=== PATIENT | male | born 2000 | race Caucasian/White ===

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

== ENCOUNTER 2022-03-06 12:54 | Emergency (ER) | payer BC, SELFPAY ==
[2022-03-06 13:19] LABS: UTC Strep Screen (Rapid) Negative (Negative)
--- NOTE | 2022-03-06 13:28 | EXP.UTC ---
Discharge Plan Disposition Patient Disposition: Home, Self-Care Condition: Good Prescriptions Prescriptions: No Action levetiracetam 500 mg tablet 750 mg PO BID 30 Days Qty: 60 mesalamine 250 mg capsule, extended release 250 mg PO TID quetiapine 25 MG tablet 25 mg PO HS ondansetron 4 MG tablet,disintegrating 4 mg PO TIDP PRN (Reason: Nausea And Vomiting) Qty: 15 0RF Referrals Follow up/Referrals: Randell Bennett MD [Primary Care Provider] - See instructions Activity Restrictions/Add. Instructions Additional Instructions/Restrictions: *Monitor Temp, Over the counter Motrin or Tylenol as directed/as needed Tylenol every 4 hours and Motrin every 6 hours (as long as your family doctor has told you that you can take it) for fever or pain. and straight to ER if unable to lower temp less than 101.0 after medication given *Warm salt water gargles may help to soothe the throat *Throat Lozenges? *Warm fluids like tea with honey may help to soothe the throat? *Sleep elevated *Humidifier/Vaporizer Your throat swab was sent for culture. Those results are typically sent to your primary care. Be sure to follow up in 2-3 days with your family doctor/primary care physician if no improvement so they can review those result and treat if necessary. If you don?t have a primary care doctor, I recommend you get one but in the mean time, you will have to return to a walk in clinic Follow up IMMEDIATELY for new or worsening symptoms or no Noticeable improvement over the next 48-72 hours. 911 for difficulty breathing or swallowing You were tested for today for COVID19 your test result should be back in the next 24-48 hours, you may check your result on the [facility] My Health Portal Make sure to take your Vitamins Vit. C Vit D and Zinc if you can take them Clinical Impressions Clinical Impression: Viral syndrome Stand Alone Forms Stand Alone Forms: Work/School Release Instructions Patient Instructions: Sore Throat, DI for Nasal Congestion, DI for Viral Syndrome Discharge ED Provider: Stacy Brito [facility] [place] HPI General Stated complaint: congestion, ear pain, body aches Time Seen by Provider: 03/06/22 13:28 History of Present Illness Provider Complaint: Patient states that he hasnt felt well for a couple of days States that he has been having body aches, chills, pain in both ears and nasal congestion States that he has take several over the counter medications and they havent helped much States that he started feeling bad last week and has continued to feel worse Related Data Home Medications Medication Instructions Recorded Confirmed levetiracetam 500 mg tablet 750 mg PO BID SEIZURES 30 days #60 04/28/18 10/02/21 tabs mesalamine 250 mg capsule,extended 250 mg PO TID CROHNS 08/16/19 10/02/21 release quetiapine 25 mg tablet 25 mg PO HS Sleeping 10/02/21 10/02/21 Previous Rx's Medication Instructions Recorded ondansetron 4 mg disintegrating 4 mg PO TIDP PRN Nausea And 10/02/21 tablet Vomiting #15 tabs Allergies Allergy/AdvReac Type Severity Reaction Status Date / Time Penicillins [PENICILLINS] Allergy Intermediate S-SWELLS-OR Verified 03/06/22 13:34 AL/THROAT PFSH PFSH Social History Smoking Status: Current every day smoker tobacco type: e-cigarettes alcohol intake: never current occupational status: other Travel in the last 8 weeks: None household members: family housing: house ROS Obtained: Yes All systems reviewed & no additional complaints except as documented and Yes Systems reviewed as appropriate & no additional complaints except as documented Constitutional Constitutional: Reports system reviewed and no additional complaints, except as documented, Reports as per HPI, Reports body ache, Reports chills and Reports fatigue ENT Ears, Nose, Mouth, and Throat: Reports system reviewed and no additional complaints, except as documented, Repor
[2022-03-06 13:30] VITALS: BP 112/67; PULSE 72; RESP 18; TEMP 37; O2SAT 100; BMI 18.3
[2022-03-06 13:41] VITALS: BP 112/67; PULSE 72; RESP 18; TEMP 37
[2022-03-06 13:43] LABS: Adenovirus,PCR Not Detected (NotDetected); Bordetella Pertussis Not Detected (NotDetected); Chlamydophila Pneumoniae, PCR Not Detected (NotDetected); Coronavirus 19, PCR Not Detected (NotDetected); Coronavirus 229E Not Detected (NotDetected); Coronavirus NL63 Not Detected (NotDetected); Coronavirus OC43 Not Detected (NotDetected); Coronovirus HKU1,PCR Not Detected (NotDetected); Human Metapneumovirus Not Detected (NotDetected); Influenza A, PCR Not Detected (NotDetected); Influenza AH1, 2009 Not Detected (NotDetected); Influenza AH1, PCR Not Detected (NotDetected); Influenza AH3,PCR Not Detected (NotDetected); Influenza B, PCR Not Detected (NotDetected); Mycoplasma Pneumoniae, PCR Not Detected (NotDetected); Parainfluenza 1, PCR Not Detected (NotDetected); Parainfluenza 2, PCR Not Detected (NotDetected); Parainfluenza 3, PCR Not Detected (NotDetected); Parainfluenza 4, PCR Not Detected (NotDetected); Respiratory Syncytial Virus Not Detected (NotDetected)
[2022-03-06 21:16] LABS: Rhinovirus/Enterovirus Detected (NotDetected)
== END 2022-03-06 13:45 | disposition home or self-care (01) ==
PROVIDERS: Emergency Provider Nurse Practitioner; PCP Family Medicine
DX: B34.9 Viral infection, unspecified (principal); R09.81 Nasal congestion; M79.10 Myalgia, unspecified site; H92.03 Otalgia, bilateral; Z20.822 Contact with and (suspected) exposure to COVID-19
CPT/HCPCS: 87581; 87632; 87798; 87880; 99212; C9803; G0463; U0003; U0005

== ENCOUNTER 2023-05-01 14:23 | Emergency (ER) | payer BC, SELFPAY ==
[2023-05-01 14:40] VITALS: BP 116/61; PULSE 87; RESP 18; TEMP 36.8; O2SAT 98; BMI 19.7
--- NOTE | 2023-05-01 14:41 | EXP.UTC ---
Discharge Plan Disposition Patient Disposition: Home, Self-Care Condition: Good Prescriptions Prescriptions: New azithromycin [Zithromax] 250 mg tablet 250 mg PO UD DOSE PK Qty: 6 0RF Rx Instructions: Take two (2) tablets today, then one (1) tablet days #2 thru #5 methylprednisolone 4 mg Tablets,Dose Pack 4 mg PO DIRECTED Qty: 21 0RF [id number]-[id number] [Bromfed DM] 2-30-10 mg/5 mL Syrup 5 ml PO Q6H PRN (Reason: Cough) Qty: 240 0RF No Action levetiracetam 500 mg tablet 750 mg PO BID 30 Days Qty: 60 mesalamine 250 mg capsule, extended release 250 mg PO TID omeprazole 20 mg capsule,delayed release(DR/EC) 20 mg PO DAILY Referrals Follow up/Referrals: Randell Bennett MD [Primary Care Provider] - See instructions Activity Restrictions/Add. Instructions Additional Instructions/Restrictions: Drink plenty of fluids. Take tylenol or ibuprofen for pain or fever. Take the medications as directed. Follow up with your regular doctor. GO TO THE ER FOR ANY WORSENING SYMPTOMS Clinical Impressions Clinical Impression: Sinusitis, Pharyngitis Stand Alone Forms Stand Alone Forms: Work/School Release Discharge ED Provider: Bolivar Bowman [facility] [place] HPI General Stated complaint: cough,runny nose,ear pain,watery eyes Time Seen by Provider: 05/01/23 14:42 Related Data Home Medications Medication Instructions Recorded Confirmed levetiracetam 500 mg tablet 750 mg PO BID SEIZURES 30 days #60 04/28/18 05/01/23 tabs mesalamine 250 mg capsule,extended 250 mg PO TID CROHNS 08/16/19 05/01/23 release omeprazole 20 mg capsule,delayed 20 mg PO DAILY 05/01/23 05/01/23 release Previous Rx's Medication Instructions Recorded azithromycin 250 mg tablet 250 mg PO UD DOSE PK #6 tabs 05/01/23 (Zithromax) hnngqmkcsgfixgf-yjkxtzdxleuphgf-QL 5 ml PO Q6H PRN Cough #240 mL 05/01/23 2 mg-30 mg-10 mg/5 mL oral syrup (Bromfed DM) methylprednisolone 4 mg tablets in 4 mg PO DIRECTED #21 tabs 05/01/23 a dose pack Allergies Allergy/AdvReac Type Severity Reaction Status Date / Time Penicillins [PENICILLINS] Allergy Intermediate S-SWELLS-OR Verified 05/01/23 15:01 [facility] Disclaimer: The information contained in this section may have been updated after the patient was seen, as this information can be updated by other users. Social History Smoking Status: Current every day smoker tobacco type: e-cigarettes alcohol intake: never current occupational status: other Travel in the last 8 weeks: None household members: family housing: house ROS Obtained: Yes All systems reviewed & no additional complaints except as documented Constitutional Constitutional: Reports chills and Reports fever(s) Eyes Eyes: Denies eye discharge ENT Ears, Nose, Mouth, and Throat: Reports as per HPI Cardiovascular Cardiovascular: Denies chest pain Respiratory Respiratory: Denies chest congestion and Reports cough Gastrointestinal Gastrointestingal: Reports nausea; Denies abdominal pain, constipation, cramping, diarrhea or vomiting Musculoskeletal Musculoskeletal: Denies arthralgias Integumentary/Breasts Skin/Breast: Denies rash Neurologic Neurologic: Denies paresthesias Physical Exam General General appearance: alert and in no apparent distress Eye Eye exam: Present normal appearance, PERRL and EOMI ENT ENT exam: Present mucous membranes moist and normal external ear exam Expanded ENT Exam External ear exam: Present normal external inspection TM/Canal exam: Bilateral TM: erythema and bulging Nose exam: Absent sinus tenderness Nasal speculum exam: Bilateral: normal Mouth exam: Present normal external inspection; Absent drooling Teeth exam: Present normal inspection Throat exam: Present tonsillar erythema and tonsillomegaly Neck Neck exam: Present normal inspection, full ROM and trachea
[2023-05-01 14:57] LABS: UTC Strep Screen (Rapid) Negative (Negative)
[2023-05-01 15:00] VITALS: BP 116/61; PULSE 87; RESP 18; TEMP 36.8; O2SAT 98
== END 2023-05-01 15:34 | disposition home or self-care (01) ==
PROVIDERS: Emergency Provider Nurse Practitioner Family; PCP Family Medicine
DX: J01.90 Acute sinusitis, unspecified (principal); J02.9 Acute pharyngitis, unspecified; R05.9 Cough, unspecified; R09.81 Nasal congestion; H92.03 Otalgia, bilateral; F17.290 Nicotine dependence, other tobacco product, uncomplicated
CPT/HCPCS: 87880; 99212; 99214; G0463

== ENCOUNTER 2023-05-15 07:39 | Emergency (ER) | payer BC, SELFPAY ==
[2023-05-15 07:40] VITALS: BP 136/80; PULSE 95; RESP 16; TEMP 37; O2SAT 100; BMI 18.6
--- NOTE | 2023-05-15 07:42 | HMH.EDGENADL ---
Discharge Plan Disposition Patient Disposition: Home, Self-Care Condition: Good Prescriptions Prescriptions: New methocarbamol 750 mg tablet 750 mg PO Q8H Qty: 90 0RF No Action levetiracetam 500 mg tablet 750 mg PO BID 30 Days Qty: 60 mesalamine 250 mg capsule, extended release 250 mg PO TID omeprazole 20 mg capsule,delayed release(DR/EC) 20 mg PO DAILY azithromycin [Zithromax] 250 mg tablet 250 mg PO UD DOSE PK Qty: 6 0RF Rx Instructions: Take two (2) tablets today, then one (1) tablet days #2 thru #5 methylprednisolone 4 mg Tablets,Dose Pack 4 mg PO DIRECTED Qty: 21 0RF erwsihkvrzkbhaq-igemilymt-ZX [Bromfed DM] 2-30-10 mg/5 mL Syrup 5 ml PO Q6H PRN (Reason: Cough) Qty: 240 0RF Referrals Follow up/Referrals: Randell Bennett MD [Primary Care Provider] - See instructions Activity Restrictions/Add. Instructions Additional Instructions/Restrictions: Please continue to take Tylenol as needed. I have also prescribed an additional medication which is a muscle relaxer. Please be careful with how you move your body at work as well as how you are sitting and standing as this may be contributing. Please return to the emergency department if you experience any new or worsening symptoms. Clinical Impressions Clinical Impression: Acute thoracic back pain Qualifiers: Back pain laterality: midline Qualified Code(s): M54.6 - Pain in thoracic spine Stand Alone Forms Stand Alone Forms: Work/School Release Instructions Patient Instructions: DI for Low Back Pain Discharge ED Provider: Lv Stoll Adult HPI General Chief complaint: Back Pain/Injury Stated complaint: back pain, no accident Time Seen by Provider: 05/15/23 07:42 History of Present Illness HPI narrative: The patient presents with a chief complaint of severe lower back pain that started last night. He reports a history of mild, intermittent lower back pain throughout his life, but the current episode is significantly more intense. The pain is described as sharp and located on both sides of the spine. There is no specific injury or event reported that may have triggered the pain. He experienced difficulty getting dressed this morning due to the pain and reports weakness in his legs when the sharp pain occurs. He denies any numbness or tingling. 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 No specific activities or positions have been identified that exacerbate or alleviate the pain. The patient has a past medical history of Crohn's disease and is currently taking mesalamine for management. He was previously prescribed ibuprofen for his back pain, but it was contraindicated due to his Crohn's disease. The patient also reports a recent sinus infection that has resolved. There is no reported fever, chills, or other associated symptoms. The patient has not had any imaging of his back in the past. Related Data Home Medications Medication Instructions Recorded Confirmed levetiracetam 500 mg tablet 750 mg PO BID SEIZURES 30 days #60 04/28/18 05/01/23 tabs mesalamine 250 mg capsule,extended 250 mg PO TID CROHNS 08/16/19 05/01/23 release omeprazole 20 mg capsule,delayed 20 mg PO DAILY 05/01/23 05/01/23 release Previous Rx's Medication Instructions Recorded azithromycin 250 mg tablet 250 mg PO UD DOSE PK #6 tabs 05/01/23 (Zithromax) qytxedtsdlikayi-nbzzcaoafmfhnkq-FQ 5 ml PO Q6H PRN Cough #240 mL 05/01/23 2 mg-30 mg-10 mg/5 mL oral syrup (Bromfed DM) methylprednisolone 4 mg tablets in 4 mg PO DIRECTED #21 tabs 05/01/23 a dose pack methocarbamol 750 mg tablet 750 mg PO Q8H #90 tabs 05/15/23 Allergies Allergy/AdvReac Type Severity Reaction Status Date / Time Penicillins [PENICILLINS] Allergy Intermediate S-SWELLS-OR Verified 05/01/23 15:01 [facility] Disclaimer: The information cont
--- NOTE | 2023-05-15 08:01 | PC.NURSE ---
dr regan at bedside
[2023-05-15 08:30] VITALS: BP 120/83; PULSE 85; O2SAT 100
[2023-05-15 09:00] VITALS: BP 111/71; PULSE 90; O2SAT 99
[2023-05-15 09:13] VITALS: BP 111/71; PULSE 88; RESP 18; TEMP 36.7; O2SAT 99
== END 2023-05-15 09:14 | disposition home or self-care (01) ==
PROVIDERS: Emergency Provider Emergency Medicine; PCP Family Medicine
DX: M54.6 Pain in thoracic spine (principal); M54.50 Low back pain, unspecified; K50.919 Crohn's disease, unspecified, with unspecified complications; F17.290 Nicotine dependence, other tobacco product, uncomplicated
CPT/HCPCS: 99283

== ENCOUNTER 2023-10-15 16:38 | Emergency (ER) | payer BC, SELFPAY ==
--- NOTE | 2023-10-15 16:53 | XR_ITS ---
PROCEDURE INFORMATION: Exam: XR Right Knee Exam date and time: 10/15/2023 4:49 PM Age: 23 years old Clinical indication: Pain; Knee; Right TECHNIQUE: Imaging protocol: Radiologic exam of the right knee. Views: 3 views. COMPARISON: No relevant prior studies available. FINDINGS: Bones/joints: Normal alignment. No right knee effusion. No fracture. Soft tissues: Normal. IMPRESSION: Normal study
[2023-10-15 17:15] VITALS: BP 109/79; PULSE 81; RESP 18; TEMP 36.8; O2SAT 98
--- NOTE | 2023-10-15 17:21 | ED_ITS ---
Discharge Plan Disposition Patient Disposition: Home, Self-Care Condition: Good Prescriptions Prescriptions: New clindamycin HCl 300 mg capsule 300 mg PO Q8H Qty: 30 0RF mupirocin 2 % ointment 1 applic topical TID 7 Days Qty: 15 0RF ibuprofen [IBU] 800 mg tablet 800 mg PO Q8HP PRN (Reason: Moderate Pain) Qty: 30 0RF No Action levetiracetam 500 mg tablet 750 mg PO BID 30 Days Qty: 60 mesalamine 250 mg capsule, extended release 250 mg PO TID Referrals Follow up/Referrals: Randell Bennett MD [Primary Care Provider] - See instructions Activity Restrictions/Add. Instructions Additional Instructions/Restrictions: Keep the wound clean and dry. Watch the wound for signs of infection, such as redness, swelling, drainage, fever. etc. Take tylenol or ibuprofen for pain. I sent in a prescription for ibuprofen. Follow up with your regular doctor for a recheck of the wound in 48 to 72 hours. GO TO THE ER FOR ANY WORSENING SYMPTOMS OR CONCERNS. 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 He has had right knee pain and swelling at the site since then. He denies other injury. His tetanus immunization is not up to date. Related Data Home Medications Medication Instructions Recorded Confirmed levetiracetam 500 mg tablet 750 mg PO BID SEIZURES 30 days #60 04/28/18 10/15/23 tabs mesalamine 250 mg capsule,extended 250 mg PO TID CROHNS 08/16/19 10/15/23 release Previous Rx's Medication Instructions Recorded clindamycin HCl 300 mg capsule 300 mg PO Q8H #30 caps 10/15/23 ibuprofen 800 mg tablet (IBU) 800 mg PO Q8HP PRN Moderate Pain 10/15/23 #30 tabs mupirocin 2 % topical ointment 1 applic topical TID 7 days #15 10/15/23 grams Allergies Allergy/AdvReac Type Severity Reaction Status Date / Time Penicillins [PENICILLINS] Allergy Intermediate S-SWELLS-OR Verified 10/15/23 17:31 AL/THROAT PFSH [facility] Disclaimer: The information contained in this section may have been updated after the patient was seen, as this information can be updated by other users. Social History Smoking Status: Current every day smoker tobacco type: e-cigarettes alcohol intake: never current occupational status: other Travel in the last 8 weeks: None household members: family housing: house ROS Obtained: Yes All systems reviewed & no additional complaints except as documented Constitutional Constitutional: Denies chills and Denies fever(s) Eyes Eyes: Denies eye discharge ENT Ears, Nose, Mouth, and Throat: Denies dizziness, Denies otalgia and Denies sore throat Cardiovascular Cardiovascular: Denies chest pain Respiratory Respiratory: Denies shortness of breath, Denies chest congestion, Denies cough, Denies stridor and Denies wheezing Gastrointestinal Gastrointestingal: Denies nausea or vomiting Musculoskeletal Musculoskeletal: Reports as per HPI Integumentary/Breasts Skin/Breast: Reports as per HPI and Reports wounds Neurologic Neurologic: Denies dizziness and Denies paresthesias Allergic/Immunologic Allergic/Immunologic: Denies wheezing Physical Exam General General appearance: alert and in no apparent distress Head Head exam: atraumatic, normocephalic and normal inspection Eye Eye exam: Present normal appearance, PERRL and EOMI ENT ENT exam: Present normal exam, normal oropharynx, mucous membranes moist, TM's normal bilaterally and normal external ear exam Neck Neck exam: Present normal inspection, full ROM and trachea midline; Absent meningismus or lymphadenopathy Chest Chest inspection: Present normal inspection and symmetric chest wall rise; Absent tenderness Respiratory Respiratory exam: Present normal lung sounds bilaterally; Absent respiratory distress Cardiovascular Cardiovascular exam: Present regular rate and normal rhythm; Absent JVD Abdominal Exam Abdominal exam: Present soft and normal bowel sounds; Absent distention, tenderness or guarding Extremities Exam Extremities exam: Present normal capillary refill; Absent calf tenderness Expanded Lower Extremity Exam Left: Knee exam: Present full ROM, tenderness and knee extension intact; Absent swelling, abrasion, laceration, ecchymosis, deformity, crepitus, dislocation, erythema, effusion, anterior drawer sign, posterior draw sign, pain with valgus, laxity with valgus, pain with varus or laxity with varus Neurovascular/Tendon exam: Present normal capillary refill Gait: observed and normal Back Exam Back exam: Present normal inspection; Absent tenderness Neurological Exam Neurological exam: Present alert and oriented X3 Psychiatric Psychiatric exam: Present normal affect and normal mood Skin Skin exam: Present warm, dry, intact and normal color Lymphatic Lymphatic Findings: no adenopathy Medical Decision Making Medical Records Medical records reviewed: No I reviewed the patient's medical records. Ede Inquiry Pt receiving controlled substance: No Orders (Tests/Meds): ORDERS Category Date Time Status Knee XR right 3 views [XR knee RT 3V] Stat Exams 10/15/23 16:53 Completed Radiology Data #1: Image(s): Knee Image Reviewed: Yes I reviewed the patient's radiology image and Yes I have reviewed radiologist's interpretation Preliminary Findings: Normal/NAD Accession No. 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 Views: 3 views. COMPARISON: No relevant prior studies available. FINDINGS: Bones/joints: Normal alignment. No right knee effusion. No fracture. Soft tissues: Normal. IMPRESSION: Normal study
[2023-10-15] MEDS: TET/DIPHTH/PERT-ADULT 0.5ML SYRINGE 0.5 ML IM (17:46)
[2023-10-15 18:29] VITALS: BP 109/79; PULSE 81; RESP 18; TEMP 36.8; O2SAT 98
== END 2023-10-15 18:29 | disposition home or self-care (01) ==
PROVIDERS: Emergency Provider Nurse Practitioner Family; PCP Family Medicine
DX: S81.031A Puncture wound without foreign body, right knee, initial encounter (principal); Z23 Encounter for immunization; W45.8XXA Other foreign body or object entering through skin, initial encounter
CPT/HCPCS: 73562; 90471; 90715; 99212; 99214; G0463

== ENCOUNTER 2023-12-13 10:34 | Emergency (ER) | payer BC, SELFPAY ==
[2023-12-13 10:45] VITALS: BP 112/69; PULSE 76; RESP 18; TEMP 36.8; O2SAT 100; BMI 19.1
--- NOTE | 2023-12-13 11:27 | ED_ITS ---
Discharge Plan Disposition Patient Disposition: Home, Self-Care Condition: Good Prescriptions Prescriptions: New fluticasone propionate [Flonase Allergy Relief] 50 mcg/actuation spray,suspension 1 spray intranasal DAILY Qty: 16 0RF Rx Instructions: administer into each nostril twice a day for a week and then once daily ondansetron 4 mg tablet,disintegrating 4 mg PO Q8H PRN (Reason: nausea and vomiting) Qty: 10 0RF No Action levetiracetam 500 mg tablet 750 mg PO BID 30 Days Qty: 60 mesalamine 250 mg capsule, extended release 250 mg PO TID Referrals Follow up/Referrals: Randell Bennett MD [Primary Care Provider] - See instructions Activity Restrictions/Add. Instructions Additional Instructions/Restrictions: Take medication as prescribed. Do not take anti-diarrheal. Increase fluids and rest. Bananas, rice, applesauce, toast when you start back eating. If symptoms do not improve or worsen, return to clinic or go to PCP. Clinical Impressions Clinical Impression: Gastroenteritis Dysfunction of eustachian tube Qualifiers: Laterality: bilateral Qualified Code(s): H69.93 - Unspecified Eustachian tube disorder, bilateral Stand Alone Forms Stand Alone Forms: Work/School Release Instructions Patient Instructions: DI for Viral Gastroenteritis -- Adult, DI for Eustachian Tube Dysfunction-Adult Discharge ED Provider: Aysha Mcintosh [facility] General Stated complaint: vomiting Mode of Arrival: Ambulatory Source of Information: Patient Limitations: No Limitations Time Seen by Provider: 12/13/23 11:27 Description of Symptoms (Recalled from Triage Doc. by RN): PATIENT C/O NAUSEA, VOMITING, DIARRHEA, HEADACHE, RIGHT EAR PAIN, AND FEVER SINCE YESTERDAY HEENT Symptoms (Recalled from RN notes): Yes Resp Symptoms (Recalled from RN notes): No Skin Symptoms (Recalled from RN notes): No MS Symptoms (Recalled from RN notes): No Functional Status (Recalled from RN notes): WNL History of Present Illness Provider Complaint: Pt reports that when he got home from work yesterday he started feeling sick to his stomach and then later started vomiting. He reports that he has not vomited today but has still felt nauseated and had diarrhea. He reports that he has had some right side ear pain since last night. Related Data Home Medications Medication Instructions Recorded Confirmed levetiracetam 500 mg tablet 750 mg PO BID SEIZURES 30 days #60 04/28/18 12/13/23 tabs mesalamine 250 mg capsule,extended 250 mg PO TID CROHNS 08/16/19 12/13/23 release Previous Rx's Medication Instructions Recorded fluticasone propionate 50 1 spray intranasal DAILY #16 grams 12/13/23 mcg/actuation nasal spray,suspension (Flonase Allergy Relief) ondansetron 4 mg disintegrating 4 mg PO Q8H PRN nausea and 12/13/23 tablet vomiting #10 tabs Allergies Allergy/AdvReac Type Severity Reaction Status Date / Time Penicillins [PENICILLINS] Allergy Intermediate S-SWELLS-OR Verified 10/15/23 17:31 AL/THROAT Worker's Comp Is this a Worker's Comp case?: No [facility] Disclaimer: The information contained in this section may have been updated after the patient was seen, as this information can be updated by other users. 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 (Updated 12/13/23 @ 11:40 by Aysha Mcintosh APRN) Seizures Social History Smoking Status: Current every day smoker tobacco type: e-cigarettes alcohol intake: never current occupational status: other Travel in the last 8 weeks: None household members: family housing: house ROS Obtained: Yes All systems reviewed & no additional complaints except as documented Constitutional Constitutional: Reports system reviewed and no additional complaints, except as documented and Reports malaise Eyes Eyes: Reports system reviewed and no additional complaints, except as documented ENT Ears, Nose, Mouth, and Throat: Reports system reviewed and no additional complaints, except as documented, Reports otalgia and Reports nasal discharge Cardiovascular Cardiovascular: Reports system reviewed and no additional complaints, except as documented Respiratory Respiratory: Reports system reviewed and no additional complaints, except as documented Gastrointestinal Gastrointestingal: Reports system reviewed and no additional complaints, except as documented, diarrhea, nausea and vomiting Genitourinary Male Genitourinary: Reports system reviewed and no additional complaints, except as documented Musculoskeletal Musculoskeletal: Reports system reviewed and no additional complaints, except as documented Integumentary/Breasts Skin/Breast: Reports system reviewed and no additional complaints, except as documented Neurologic Neurologic: Reports system reviewed and no additional complaints, except as documented Endocrine Endocrine: Reports system reviewed and no additional complaints, except as documented Hematologic/Lymphatic Henatologic/Lymphatic: Reports system reviewed and no additional complaints, except as documented Allergic/Immunologic Allergic/Immunologic: Reports system reviewed and no additional complaints, except as documented Physical Exam General General appearance: alert and in no apparent distress Head Head exam: atraumatic and normocephalic Eye Eye exam: Present normal appearance ENT ENT exam: Present mucous membranes moist Expanded ENT Exam External ear exam: Present normal external inspection TM/Canal exam: Bilateral TM: bulging and effusion Nose exam: Absent sinus tenderness Nasal speculum exam: Bilateral: normal Mouth exam: Present normal external inspection Teeth exam: Present normal inspection Throat exam: Present normal inspection Neck Neck exam: Present normal inspection; Absent lymphadenopathy Chest Chest inspection: Present normal inspection and symmetric chest wall rise Respiratory Respiratory exam: Present normal lung sounds bilaterally Cardiovascular Cardiovascular exam: Present regular rate, normal rhythm and normal heart sounds Abdominal Exam Abdominal exam: Present soft, tenderness and hyperactive bowel sounds Abdominal tenderness: Present epigastrium Extremities Exam Extremities exam: Present normal inspection Back Exam Back exam: Present normal inspection Neurological Exam Neurological exam: Present alert and oriented X3 Psychiatric Psychiatric exam: Present normal affect and normal mood Skin Skin exam: Present warm and dry Lymphatic Lymphatic Findings: no adenopathy Medical Decision Making Ede Inquiry Pt receiving controlled substance: No Ede was queried for this patient: No Vital Signs: 12/13/23 10:45 Temperature 98.2 F Temperature Source Oral Pulse Rate [Left Brachial] 76 Respiratory Rate 18 Blood Pressure [Left Arm] 112/69 Blood Pressure Mean [Left Arm] 83 Blood Pressure Source [Left Arm] Automatic Cuff Blood Pressure Position [Left Arm] Sitting 02 Sat by Pulse Oximetry 100 Oxygen Delivery Method Room Air
[2023-12-13 11:48] VITALS: BP 112/69; PULSE 76; RESP 18; TEMP 36.8; O2SAT 100
== END 2023-12-13 11:57 | disposition home or self-care (01) ==
PROVIDERS: Emergency Provider Nurse Practitioner Family; PCP Family Medicine
DX: K52.9 Noninfective gastroenteritis and colitis, unspecified (principal); R11.2 Nausea with vomiting, unspecified; H69.93 Unspecified Eustachian tube disorder, bilateral
CPT/HCPCS: 99212; 99214; G0463

== ENCOUNTER 2023-12-21 15:30 | Emergency (ER) | payer BC, SELFPAY ==
[2023-12-21 15:35] VITALS: BP 139/88; PULSE 96; RESP 18; TEMP 36.8; O2SAT 97; BMI 18.9
--- NOTE | 2023-12-21 15:41 | XR_ITS ---
FINAL REPORT CLINICAL HISTORY: Pain in heel bruising on medial and lateral sides FINDINGS: LEFT FOOT Three views of the left foot demonstrate no acute fracture or dislocation. The visualized joint spaces are normally aligned. The soft tissues are unremarkable. IMPRESSION: No acute bony abnormality. Reviewed, Interpreted and Dictated by River Rasheed III, MD Transcribed by Gogo Zuleta Authenticated and [facility]
--- NOTE | 2023-12-21 16:03 | ED_ITS ---
Discharge Plan Disposition Patient Disposition: Home, Self-Care Condition: Good Prescriptions Prescriptions: New ibuprofen [IBU] 800 mg tablet 800 mg PO Q8HP PRN (Reason: Moderate Pain) Qty: 30 0RF No Action levetiracetam 500 mg tablet 750 mg PO BID 30 Days Qty: 60 mesalamine 250 mg capsule, extended release 250 mg PO TID Referrals Follow up/Referrals: Randell Bennett MD [Primary Care Provider] - See instructions Mariella Krause DPM [Staff Physician] - See instructions Activity Restrictions/Add. Instructions Additional Instructions/Restrictions: Rest the extremity, Elevate the extremity as tolerated while you are resting. Take ibuprofen for pain. I sent in a prescription to your pharmacy. Follow up with Dr. Krause (podiatry). I put in a referral but you need to call her office and schedule an appointment. Follow up with your regular doctor. GO TO THE ER FOR ANY WORSENING SYMPTOMS Clinical Impressions Clinical Impression: Left foot pain Stand Alone Forms Stand Alone Forms: Work/School Release Instructions Patient Instructions: DI for Foot Pain Discharge ED Provider: Bolivar Bowman [facility] General Stated complaint: left foot pain, no known accident Mode of Arrival: Ambulatory Source of Information: Patient Limitations: No Limitations Time Seen by Provider: 12/21/23 16:02 Description of Symptoms (Recalled from Triage Doc. by RN): Pt's has pain in his left heel for the last 3 weeks. He cannot think of anything specific that would have caused it. HEENT Symptoms (Recalled from RN notes): No Resp Symptoms (Recalled from RN notes): No Skin Symptoms (Recalled from RN notes): No MS Symptoms (Recalled from RN notes): Yes Functional Status (Recalled from RN notes): n/a History of Present Illness Provider Complaint: He states that for the past 3 weeks he has had left heel pain. He denies any injury. Related Data Home Medications Medication Instructions Recorded Confirmed levetiracetam 500 mg tablet 750 mg PO BID SEIZURES 30 days #60 04/28/18 12/21/23 tabs mesalamine 250 mg capsule,extended 250 mg PO TID CROHNS 08/16/19 12/21/23 release Previous Rx's Medication Instructions Recorded ibuprofen 800 mg tablet (IBU) 800 mg PO Q8HP PRN Moderate Pain 12/21/23 #30 tabs Allergies Allergy/AdvReac Type Severity Reaction Status Date / Time Penicillins [PENICILLINS] Allergy Intermediate S-SWELLS-OR Verified 12/21/23 15:43 AL/THROAT Worker's Comp Is this a Worker's Comp case?: No [facility] Disclaimer: The information contained in this section may have been updated after the patient was seen, as this information can be updated by other users. 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 (Updated 12/21/23 @ 16:44 by Bolivar Bowman APRN) Seizures Social History Smoking Status: Current every day smoker tobacco type: e-cigarettes alcohol intake: never current occupational status: other Travel in the last 8 weeks: None household members: family housing: house ROS Obtained: Yes All systems reviewed & no additional complaints except as documented Constitutional Constitutional: Denies chills and Denies fever(s) Eyes Eyes: Denies eye discharge ENT Ears, Nose, Mouth, and Throat: Denies dizziness, Denies otalgia and Denies sore throat Cardiovascular Cardiovascular: Denies chest pain Respiratory Respiratory: Denies shortness of breath, Denies chest congestion, Denies cough, Denies stridor and Denies wheezing Gastrointestinal Gastrointestingal: Denies nausea or vomiting Musculoskeletal Musculoskeletal: Reports as per HPI Integumentary/Breasts Skin/Breast: Denies redness, Denies rash and Denies wounds Neurologic Neurologic: Denies dizziness and Denies paresthesias Allergic/Immunologic Allergic/Immunologic: Denies wheezing Physical Exam General General appearance: alert and in no apparent distress Head Head exam: atraumatic, normocephalic and normal inspection Eye Eye exam: Present normal appearance, PERRL and EOMI ENT ENT exam: Present normal exam, normal oropharynx, mucous membranes moist, TM's normal bilaterally and normal external ear exam Neck Neck exam: Present normal inspection, full ROM and trachea midline; Absent meningismus or lymphadenopathy Chest Chest inspection: Present normal inspection and symmetric chest wall rise; Absen t tenderness Respiratory Respiratory exam: Present normal lung sounds bilaterally; Absent respiratory distress Cardiovascular Cardiovascular exam: Present regular rate and normal rhythm; Absent JVD Abdominal Exam Abdominal exam: Present soft and normal bowel sounds; Absent distention, tenderness or guarding Extremities Exam Extremities exam: Present normal capillary refill; Absent calf tenderness Expanded Lower Extremity Exam Left: Knee exam: Present normal inspection, full ROM and knee extension intact; Absent tenderness Lower leg exam: Present normal inspection, full ROM and Achilles tendon intact; Absent tenderness or Homans' sign Ankle exam: Present full ROM and tenderness; Absent swelling, abrasion, laceration, ecchymosis, deformity, crepitus, dislocation, erythema, tenderness over talofibular lig or anterior draw sign Foot/toe exam: Present full ROM and tenderness; Absent swelling, abrasion, laceration, ecchymosis, deformity, crepitus, dislocation, erythema, amputation, puncture wound, foreign body, calcaneal tenderness, tenderness at base of 5th metatarsal, nail avulsion or subungual hematoma Neurovascular/Tendon exam: Present normal capillary refill, normal 2-point discrimination and normal fine/light touch; Absent pulse deficit, motor deficit, sensory deficit, tendon deficit, extremity cold to touch or pallor Gait: observed and limited by pain Back Exam Back exam: Present normal inspection; Absent tenderness Neurological Exam Neurological exam: Present alert and oriented X3 Psychiatric Psychiatric exam: Present normal affect and normal mood Skin Skin exam: Present warm, dry, intact and normal color Lymphatic Lymphatic Findings: no adenopathy Medical Decision Making Medical Records Medical records reviewed: No I reviewed the patient's medical records. Ede Inquiry Pt receiving controlled substance: No Vital Signs: 12/21/23 15:35 Temperature 98.2 F Temperature Source Oral Pulse Rate [Right Radial] 96 H Respiratory Rate 18 Blood Pressure [Right Arm] 139/88 Blood Pressure Mean [Right Arm] 105 Blood Pressure Source [Right Arm] Automatic Cuff Blood Pressure Position [Right Arm] Sitting 02 Sat by Pulse Oximetry 97 Oxygen Delivery Method Room Air Orders (Tests/Meds): ORDERS Category Date Time Status Foot XR left minimum 3 views [XR foot LT min 3V] Stat Exams 12/21/23 15:41 Taken
[2023-12-21 16:51] VITALS: BP 139/88; PULSE 96; RESP 18; TEMP 36.8; O2SAT 97
== END 2023-12-21 16:51 | disposition home or self-care (01) ==
PROVIDERS: Emergency Provider Nurse Practitioner Family; PCP Family Medicine
DX: M79.672 Pain in left foot (principal)
CPT/HCPCS: 73630; 99212; 99214; G0463

== ENCOUNTER 2024-05-17 16:36 | Emergency (ER) | payer BC, SELFPAY ==
[2024-05-17 16:47] VITALS: BP 147/84; PULSE 110; RESP 18; TEMP 36.5; O2SAT 100; BMI 19.3
[2024-05-17 17:01] LABS: Coronavirus 19, PCR Not Detected (NotDetected); Influenza A, PCR Not Detected (NotDetected); Influenza B, PCR Not Detected (NotDetected)
[2024-05-17] MEDS: ONDANSETRON 4MG/2ML VIAL 4 MG IV (17:01)
[2024-05-17] MEDS: 0.9 % SODIUM CHLORIDE 1000ML 500 ML 999 ML IV (17:04)
[2024-05-17 17:15] LABS: Albumin Level 4.9 g/dl (3.5-5.0); Chloride 102 mmol/L (98-107); Potassium 3.3 mmoL/L (3.5-5.1); Sodium 139 mmol/L (136-145)
[2024-05-17 17:17] LABS: Blood Urea Nitrogen 10 mg/dl (9-20); Creatinine Clearance Estimated 112 mL/min (50-200); Estimated Glomerular Filt Rate 106 ml/min (>60); GFR (African American) 128 ML/MIN (>60)
--- NOTE | 2024-05-17 17:17 | ED_ITS ---
Discharge Plan Disposition Patient Disposition: Home, Self-Care Condition: Good Prescriptions Prescriptions: New ondansetron 4 mg tablet,disintegrating 4 mg PO Q8H PRN (Reason: nausea and vomiting) Qty: 7 0RF No Action levetiracetam 500 mg tablet 750 mg PO BID 30 Days Qty: 60 mesalamine 250 mg capsule, extended release 250 mg PO TID ibuprofen [IBU] 800 mg tablet 800 mg PO Q8HP PRN (Reason: Moderate Pain) Qty: 30 0RF Referrals Follow up/Referrals: Wicho Bennett MD [Primary Care Provider] - See instructions Activity Restrictions/Add. Instructions Additional Instructions/Restrictions: Monitor temperature. Seek treatment if fever develops. Follow-up immediately if new or worse symptoms worsen or no noticeable improvement over 48 hours. Increase fluids such as water, Gatorade, Powerade, juice or Pedialyte No food is okay as long as you are drinking. Once ready to eat start bland such as bananas, rice, applesauce, toast. Contagious until no diarrhea, vomiting, fever times 48 hours without medication Follow-up immediately for new or worsening symptoms or no noticeable improvement over the next 48 hours. Clinical Impressions Clinical Impression: Nausea and vomiting Qualifiers: Vomiting type: unspecified Qualified Code(s): R11.2 - Nausea with vomiting, unspecified Instructions Patient Instructions: DI for Nausea -- Adult, DI for Vomiting -- Adult Print Language Print Language: Serbian Discharge ED Provider: Jose Smith General Adult HPI <Carol Mcghee ([facility]), GERIATRIC SOCIAL WORKER - Last Filed: 05/17/24 17:58> General Chief complaint: Nausea/Vomiting/Diarrhea Stated complaint: vomiting,dominique Time Seen by Provider: 05/17/24 16:40 Mode of Arrival: Ambulatory Source of Information: Patient Limitations: No Limitations Description of Symptoms (Recalled from ER Triage Doc. by RN): n/v vomiting x3 History of Present Illness HPI narrative: 24-year-old male presents for nausea and vomiting that started in 11 today. Has been exposed to COVID and RSV Related Data Home Medications ?Medication ?Instructions ?Recorded ?Confirmed levetiracetam 500 mg tablet 750 mg PO BID SEIZURES 30 days #60 04/28/18 12/21/23 tabs mesalamine 250 mg capsule,extended 250 mg PO TID CROHNS 08/16/19 12/21/23 release Previous Rx's ?Medication ?Instructions ?Recorded ibuprofen 800 mg tablet (IBU) 800 mg PO Q8HP PRN Moderate Pain 12/21/23 #30 tabs ondansetron 4 mg disintegrating 4 mg PO Q8H PRN nausea and 05/17/24 tablet vomiting #7 tabs Allergies Allergy/AdvReac Type Severity Reaction Status Date / Time Penicillins (PENICILLINS) Allergy Intermediate S-SWELLS-OR Verified 12/21/23 15:43 AL/THROAT PFSH <[facility] GERIATRIC SOCIAL WORKER - Last Filed: 05/17/24 17:58> PFS Disclaimer: The information contained in this section may have been updated after the patient was seen, as this information can be updated by other users. 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 (Reviewed 05/17/24 @ 17:28 by Carol MéndezNEW [facility] [place]) Seizures Social History (Reviewed 05/17/24 @ 17:28 by Carol M[facility] [place]) Smoking Status: Current every day smoker tobacco type: e-cigarettes alcohol intake: never current occupational status: other household members: family housing: house Other 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 Have you received the Flu Vaccine for this season: No Have you received the Pneumonia Vaccine: No <Carol M[facility]dez[facility] - Last Filed: 05/17/24 17:58> ROS Obtained: Yes Systems reviewed as appropriate & no additional complaints except as documented Gastrointestinal Gastrointestingal: Reports system reviewed and no additional complaints, except as documented, as per HPI, nausea and vomiting Physical Exam <Carol MéndezNEW [facility]Damian, - Last Filed: 05/17/24 17:58> General General appearance: alert and in no apparent distress Eye Eye exam: Present normal appearance ENT ENT exam: Present normal exam, normal oropharynx and mucous membranes moist Respiratory Respiratory exam: Present normal lung sounds bilaterally Cardiovascular Cardiovascular exam: Present regular rate and normal rhythm Abdominal Exam Abdominal exam: Present soft and normal bowel sounds; Absent tenderness Neurological Exam Neurological exam: Present alert and oriented X3 Skin Skin exam: Present warm and intact Medical Decision Making <[facility], - Last Filed: 05/17/24 17:58> Medical Records Medical records reviewed: Yes I reviewed the patient's medical records. Screening: Per USPSTF and CDC recommendations, given the prevalence of disease in our region, it is our hospital?s policy to screen for HIV and viral Hepatitis for all patients aged 18 and over and those with ongoing risk factors. Ede Inquiry Pt receiving controlled substance: No Ede was queried for this patient: No Vital Signs: 05/17/24 16:47 05/17/24 17:50 05/17/24 18:00 Temperature 97.7 F 98.1 F Temperature Source Oral Pulse Rate 95 H 94 H Pulse Rate [Right Radial] 110 H Respiratory Rate 18 16 20 Blood Pressure 114/73 114/68 Blood Pressure [Right Arm] 147/84 H Blood Pressure Mean [Right Arm] 105 02 Sat by Pulse Oximetry 100 100 Oxygen Delivery Method Room Air Room Air Room Air Lab Data Lab results reviewed: Yes I reviewed the patient's lab results. Lab Results 05/17/24 16:53: WBC 11.3 H, RBC 5.24, Hgb 16.7, Hct 48.6, MCV 92.7, MCH 31.9 H, MCHC 34.4, RDW 13.4, Plt Count 148, MPV 9.4, Neut % (Auto) 88.6 H, Lymph % (Auto) 5.8 L, Clinch % (Auto) 3.5, Eos % (Auto) 1.8, Baso % (Auto) 0.3, Neut # (Auto) 10.0 H, Lymph # (Auto) 0.7, Clinch # (Auto) 0.4, Eos # (Auto) 0.2, Baso # (Auto) 0.0, Total Counted 100, Neutrophils % (Manual) 85 H, Lymphocytes % (Manual) 8 L, Monocytes % (Manual) 4, Eosinophils % (Manual) 3, Platelet Estimate Normal, RBC Morphology Normal, Sodium 139, Potassium 3.3 L, Chloride 102, Carbon Dioxide 27, Anion Gap 13.3, BUN 10, Creatinine 0.90, Estimated Creat Clear 112, Estimated GFR 106, Est GFR ( Amer) 128, Glucose 101 H, Calcium 9.5, Total Bilirubin 1.6 H, AST 44, ALT 20, Alkaline Phosphatase 88, Total Protein 8.2, Albumin 4.9, Globulin 3.3 H, Albumin/Globulin Ratio 1.5, Lipase 70, HIV 1&2 Antibody Rapid Nonreactive 05/17/24 16:55: SARS-CoV-2 (PCR) Not detected, Influenza A Untype (PCR) Not detected, Influenza Type B (PCR) Not detected 05/17/24 16:53 05/17/24 16:53 Orders (Tests/Meds): ED MEDICATIONS Discontinued Medications Generic Name Dose Route Start Last Admin Trade Name Freq PRN Reason Stop Dose Admin Sodium Chloride 500 mls @ 999 mls/hr 05/17/24 16:49 05/17/24 17:04 Sod Chlor 0.9% 1000ml Bag IV 05/17/24 17:19 999 mls/hr .Q31M ONE Administration Ondansetron HCl 4 mg 05/17/24 16:49 05/17/24 17:01 Ondansetron 4mg/2ml Vial IV 05/17/24 16:50 4 mg ONCE ONE Administration Potassium Chloride 40 meq 05/17/24 17:23 05/17/24 17:31 Potassium Chloride 20meq Tab PO 05/17/24 17:24 40 meq ONCE ONE Administration ORDERS Category Date Time Status CBC w/Auto Diff [Complete Blood Count Auto Diff] Stat Lab 05/17/24 16:53 Completed CMP [Comprehensive Metabolic Panel] Stat Lab 05/17/24 16:53 Completed HIV (1&2) Antibody Rapid Stat Lab 05/17/24 16:53 Completed Hep C Ab with Reflex to RNA Stat Lab 05/17/24 16:53 Received Lipase Stat Lab 05/17/24 16:53 Completed Rapid PCR Covid and Flu A/B Stat Lab 05/17/24 16:55 Completed Medical Decision Narrative: In summary patient is a 24-year-old male who presents to the emergency department for evaluation of nausea and vomiting. Patient is hemodynamically stable upon arrival, afebrile. Unremarkable exam. Differential diagnosis includes gastritis, viral syndrome. Initial workup will be conducted with labs, COVID and flu swabs, IV fluids, Zofran. Initial inventions include normal saline bolus and Zofran. Initial workup reviewed were negative other than potassium at 3.3 (potassium 40 mEq given p.o. x 1 dose). Upon repeat evaluation patient is able to tolerate p.o. fluids. Given this patient was appropriate for discharge at this time will discharge home with Zofran and close follow-up with PCP. If symptoms worsen or do not improve return. Follow-up with PCP <Jose Smith MD - Last Filed: 05/17/24 20:13> Vital Signs: 05/17/24 16:47 05/17/24 17:50 05/17/24 18:00 Temperature 97.7 F 98.1 F Temperature Source Oral Pulse Rate 95 H 94 H Pulse Rate [Right Radial] 110 H Respiratory Rate 18 16 20 Blood Pressure 114/73 114/68 Blood Pressure [Right Arm] 147/84 H Blood Pressure Mean [Right Arm] 105 02 Sat by Pulse Oximetry 100 100 Oxygen Delivery Method Room Air Room Air Room Air Lab Data Lab Results 05/17/24 16:53: WBC 11.3 H, RBC 5.24, Hgb 16.7, Hct 48.6, MCV 92.7, MCH 31.9 H, MCHC 34.4, RDW 13.4, Plt Count 148, MPV 9.4, Neut % (Auto) 88.6 H, Lymph % (Auto) 5.8 L, Clinch % (Auto) 3.5, Eos % (Auto) 1.8, Baso % (Auto) 0.3, Neut # (Auto) 10.0 H, Lymph # (Auto) 0.7, Clinch # (Auto) 0.4, Eos # (Auto) 0.2, Baso # (Auto) 0.0, Total Counted 100, Neutrophils % (Manual) 85 H, Lymphocytes % (Manual) 8 L, Monocytes % (Manual) 4, Eosinophils % (Manual) 3, Platelet Estimate Normal, RBC Morphology Normal, Sodium 139, Potassium 3.3 L, Chloride 102, Carbon Dioxide 27, Anion Gap 13.3, BUN 10, Creatinine 0.90, Estimated Creat Clear 112, Estimated GFR 106, Est GFR ( Amer) 128, Glucose 101 H, Calcium 9.5, Total Bilirubin 1.6 H, AST 44, ALT 20, Alkaline Phosphatase 88, Total Protein 8.2, Albumin 4.9, Globulin 3.3 H, Albumin/Globulin Ratio 1.5, Lipase 70, HIV 1&2 Antibody Rapid Nonreactive 05/17/24 16:55: SARS-CoV-2 (PCR) Not detected, Influenza A Untype (PCR) Not detected, Influenza Type B (PCR) Not detected Orders (Tests/Meds): ED MEDICATIONS Discontinued Medications Generic Name Dose Route Start Last Admin Trade Name Trevor PRN Reason Stop Dose Admin Sodium Chloride 500 mls @ 999 mls/hr 05/17/24 16:49 05/17/24 17:04 Sod Chlor 0.9% 1000ml Bag IV 05/17/24 17:19 999 mls/hr .Q31M ONE Administration Ondansetron HCl 4 mg 05/17/24 16:49 05/17/24 17:01 Ondansetron 4mg/2ml Vial IV 05/17/24 16:50 4 mg ONCE ONE Administration Potassium Chloride 40 meq 05/17/24 17:23 05/17/24 17:31 Potassium Chloride 20meq Tab PO 05/17/24 17:24 40 meq ONCE ONE Administration ORDERS Category Date Time Status CBC w/Auto Diff [Complete Blood Count Auto Diff] Stat Lab 05/17/24 16:53 Completed CMP [Comprehensive Metabolic Panel] Stat Lab 05/17/24 16:53 Completed HIV (1&2) Antibody Rapid Stat Lab 05/17/24 16:53 Completed Hep C Ab with Reflex to RNA Stat Lab 05/17/24 16:53 Received Lipase Stat Lab 05/17/24 16:53 Completed Rapid PCR Covid and Flu A/B Stat Lab 05/17/24 16:55 Completed Medical Decision Narrative: In summary patient is a 24-year-old male who presents to the emergency department for evaluation of nausea and vomiting. Patient is hemodynamically stable upon arrival, afebrile. Unremarkable exam. Differential diagnosis includes gastritis, viral syndrome. Initial workup will be conducted with labs, COVID and flu swabs, IV fluids, Zofran. Initial inventions include normal saline bolus and Zofran. Initial workup reviewed were negative other than potassium at 3.3 (potassium 40 mEq given p.o. x 1 dose). Upon repeat evaluation patient is able to tolerate p.o. fluids. Given this patient was appropriate for discharge at this time will discharge home with Zofran and close follow-up with PCP. If symptoms worsen or do not improve return. Follow-up with PCP I was consulted by the MOLINA, and we discussed the complexity of the problems being addressed. I approved the treatment and management plan for this patient's care in the emergency department, thus performing a substantive portion of the medical decision making. Jose Smith MD Critical Care <Carol Mcghee ([facility]), GERIATRIC SOCIAL WORKER - Last Filed: 05/17/24 17:58> Critical Care Time Critical Care Time: No
[2024-05-17 17:18] LABS: Alanine Aminotransferase 20 U/L (12-78); Albumin/Globulin Ratio 1.5 (1.1-1.8); Alkaline Phosphatase 88 U/L (38-126); Anion Gap 13.3 mEq/L (5-15); Aspartate Amino Transferase 44 U/L (17-59); Bilirubin,Total 1.6 mg/dl (0.2-1.3); Calcium 9.5 mg/dl (8.4-10.2); Carbon Dioxide 27 mmol/L (22.0-30.0); Globulin 3.3 g/dL (1.3-3.2); Glucose 101 mg/dl (74-100); Lipase 70 U/L (23-300); Total Protein,Serum 8.2 g/dl (6.3-8.2)
[2024-05-17 17:23] LABS: Basophils % 0.3 % (0.1-2.0); Eosinophils # 0.2 K/mm3 (0.0-0.4); Eosinophils % 1.8 % (0.1-12.0); Hematocrit 48.6 % (42.0-52.0); Hemoglobin 16.7 g/dL (14.1-18.0); Lymphocytes # 0.7 K/mm3 (0.7-4.5); Lymphocytes % 5.8 % (10-50); Mean Corpuscular HGB Conc 34.4 g/dL (31.8-35.4); Mean Corpuscular Hemoglobin 31.9 pg (27.0-31.2); Mean Corpuscular Volume 92.7 fl (80-94); Mean Platelet Volume 9.4 fl (7.4-10.4); Monocytes # 0.4 K/mm3 (0.1-1.0); Monocytes % 3.5 % (1.7-9.3); Neutrophils % 88.6 % (37.0-80.0); Platelet Count 148 K/mm3 (142-424); Red Blood Count 5.24 M/mm3 (4.60-6.20); Red Cell Distribution Width 13.4 % (11.5-17.5); White Blood Count 11.3 K/mm3 (4.8-10.8)
[2024-05-17] MEDS: POTASSIUM CHLORIDE 20MEQ TAB 40 MEQ PO (17:31)
[2024-05-17 17:33] LABS: MANUAL DIFFERENTIAL MANUAL DIFFERENTIAL (MANUAL DIFF)
[2024-05-17 17:50] VITALS: BP 114/73; PULSE 95; RESP 16; O2SAT 100
[2024-05-17 17:55] LABS: HIV (1&2) Antibody Rapid NONREACTIVE (NONREACTIVE)
[2024-05-17 18:00] VITALS: BP 114/68; PULSE 94; RESP 20; TEMP 36.7; O2SAT 99
[2024-05-17 18:19] LABS: Eosinophils % 3 % (0-3); Lymphocytes % 8 % (10-50); Monocytes % 4 % (2-9); Neutrophils % 85 % (42-76); Platelet Estimate Normal; RBC Morphology Normal; Total Cells Counted 100
[2024-05-20 05:11] LABS: HCV Ab Non Reactive (Non Reactive)
== END 2024-05-17 18:03 | disposition home or self-care (01) ==
PROVIDERS: Nurse Practitioner Family; Emergency Provider Emergency Medicine; PCP Psychiatry & Neurology Sleep Medicine
DX: R11.2 Nausea with vomiting, unspecified (principal)
CPT/HCPCS: 80053; 83690; 85007; 85025; 85027; 86803; 87389; 87636; 96361; 96374; 99283; J2405; J7030

== ENCOUNTER 2024-07-23 11:55 | Emergency (ER) | payer BC, SELFPAY ==
[2024-07-23 13:00] VITALS: BP 107/70; PULSE 70; RESP 19; TEMP 36.8; O2SAT 99; BMI 18.8
--- NOTE | 2024-07-23 13:15 | ED_ITS ---
Discharge Plan Disposition Patient Disposition: Home, Self-Care Condition: Good Prescriptions Prescriptions: No Action levetiracetam 500 mg tablet 1,000 mg PO BID 30 Days Qty: 60 mesalamine 250 mg capsule, extended release 250 mg PO TID omeprazole 40 mg capsule,delayed release(DR/EC) 40 mg PO DAILY Referrals Follow up/Referrals: Randell Bennett MD [Primary Care Provider] - See instructions Activity Restrictions/Add. Instructions Additional Instructions/Restrictions: *Monitor Temp, Over the counter Motrin or Tylenol as directed/as needed Tylenol every 4 hours and Motrin every 6 hours (as long as your family doctor has told you that you can take it) for fever or pain. and straight to ER if unable to lower temp less than 101.0 after medication given *Warm salt water gargles may help to soothe the throat *Throat Lozenges? *Warm fluids like tea with honey may help to soothe the throat? *Sleep elevated *Humidifier/Vaporizer Follow up IMMEDIATELY for new or worsening symptoms or no Noticeable improvement over the next 48-72 hours. 911 for difficulty breathing or swallowing Clinical Impressions Clinical Impression: Viral syndrome Stand Alone Forms Stand Alone Forms: Work/School Release Instructions Patient Instructions: DI for Viral Syndrome Print Language Print Language: Lao Discharge ED Provider: Stacy Brito [facility] [place] General Stated complaint: sore throat head ache congestion body ache Mode of Arrival: Ambulatory Source of Information: Patient Limitations: No Limitations Time Seen by Provider: 07/23/24 13:15 Description of Symptoms (Recalled from Triage Doc. by RN): PATIENT C/O HEADACHE, BODY ACHES AND CONGESTION SINCE YESTERDAY HEENT Symptoms (Recalled from RN notes): Yes Resp Symptoms (Recalled from RN notes): No Skin Symptoms (Recalled from RN notes): No MS Symptoms (Recalled from RN notes): No Functional Status (Recalled from RN notes): WNL History of Present Illness Provider Complaint: Patient states that he started feeling bad yesterday with body aches, chills, headache, and nasal congestion States today he was still not feeling any better worried he may have the flu so he came in to get checked Related Data Home Medications ?Medication ?Instructions ?Recorded ?Confirmed levetiracetam 500 mg tablet 1,000 mg PO BID SEIZURES 30 days 04/28/18 07/23/24 #60 tabs mesalamine 250 mg capsule,extended 250 mg PO TID CROHNS 08/16/19 07/23/24 release omeprazole 40 mg capsule,delayed 40 mg PO DAILY 07/23/24 07/23/24 release Allergies Allergy/AdvReac Type Severity Reaction Status Date / Time Penicillins (PENICILLINS) Allergy Intermediate S-SWELLS-OR Verified 12/21/23 15:43 AL/THROAT Worker's Comp Is this a Worker's Comp case?: No [facility] Disclaimer: The information contained in this section may have been updated after the patient was seen, as this information can be updated by other users. 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) Smoking Status: Current every day smoker tobacco type: e-cigarettes alcohol intake: never current occupational status: other Travel in the last 8 weeks: None household members: family housing: house Have you lived/traveled outside [place] in past 30 days?: No Contact w/someone who lives/traveled outside [place] past 30 days?: No Exposure to someone with infectious disease in past 14 days?: No Do you have a fever (greater than 100.4 F or 38 C)?: No Have you tested positive for COVID-19: No Exposed to someone with COVID-19 in past 14 days?: No Do you have a sore throat?: Yes Do you have a cough?: Yes Do you have any weakness?: No Do you have any diarrhea?: No Are you experiencing any unusual bleeding?: No Do you have any muscle aches/pain?: No Do you have any abdominal pain?: No Are you experiencing loss of taste or smell?: No ROS Obtained: Yes All systems reviewed & no additional complaints except as documented and Yes Systems reviewed as appropriate & no additional complaints except as documented Constitutional Constitutional: Reports system reviewed and no additional complaints, except as documented, Reports as per HPI, Reports body ache, Reports chills and Reports headache(s) ENT Ears, Nose, Mouth, and Throat: Reports system reviewed and no additional complaints, except as documented, Reports as per HPI, Reports headache(s), Reports nasal congestion and Reports nasal discharge Cardiovascular Cardiovascular: Reports system reviewed and no additional complaints, except as documented and Reports as per HPI Respiratory Respiratory: Reports system reviewed and no additional complaints, except as documented and Reports as per HPI Gastrointestinal Gastrointestingal: Reports system reviewed and no additional complaints, except as documented and as per HPI Neurologic Neurologic: Reports headache(s) Physical Exam General General appearance: alert and in no apparent distress ENT ENT exam: Present mucous membranes moist Expanded ENT Exam Nose exam: Absent sinus tenderness Throat exam: Present normal inspection Respiratory Respiratory exam: Present normal lung sounds bilaterally; Absent respiratory distress or wheezes Cardiovascular Cardiovascular exam: Present regular rate, normal rhythm and normal heart sounds Abdominal Exam Abdominal exam: Present soft and normal bowel sounds; Absent distention or tenderness Neurological Exam Neurological exam: Present alert, oriented X3 and normal gait Medical Decision Making Medical Records Screening: Per USPSTF and CDC recommendations, given the prevalence of disease in our region, it is our hospital?s policy to screen for HIV and viral Hepatitis for all patients aged 18 and over and those with ongoing risk factors. Ede Inquiry Pt receiving controlled substance: No Ede was queried for this patient: No Vital Signs: 07/23/24 13:00 Temperature 98.3 F Temperature Source Oral Pulse Rate [Left Brachial] 70 Respiratory Rate 19 Blood Pressure [Left Arm] 107/70 L Blood Pressure Mean [Left Arm] 82 Blood Pressure Source [Left Arm] Automatic Cuff Blood Pressure Position [Left Arm] Sitting 02 Sat by Pulse Oximetry 99 Oxygen Delivery Method Room Air Lab Data Lab results reviewed: Yes I reviewed the patient's lab results.
[2024-07-23 13:23] LABS: UTC Influenza A Antigen Negative (Negative); UTC Influenza B Antigen Negative (Negative)
[2024-07-23 13:24] VITALS: BP 107/70; PULSE 70; RESP 19; TEMP 36.8; O2SAT 99
== END 2024-07-23 13:26 | disposition home or self-care (01) ==
PROVIDERS: Emergency Provider Nurse Practitioner; PCP Family Medicine
DX: B34.9 Viral infection, unspecified (principal)
CPT/HCPCS: 87804; 99213; G0381

== ENCOUNTER 2024-11-14 08:27 | Outpatient (CLI) | payer BC, SELFPAY ==
[2024-11-14 09:16] LABS: Basophils % 0.5 % (0.1-2.0); Eosinophils # 0.2 Kmm3 (0.0-0.4); Eosinophils % 3.9 % (0.1-12.0); Hemoglobin 15.9 g/dL (14.1-18.0); Immature Granulocytes # 0 10^3uL; Immature Granulocytes % 0 %; Lymphocytes # 1.6 K/mm3 (0.7-4.5); Lymphocytes % 36.8 % (10-50); Mean Corpuscular HGB Conc 34.6 g/dL (31.8-35.4); Mean Corpuscular Volume 92.6 fl (80-94); Mean Platelet Volume 11.5 fl (7.4-10.4); Monocytes # 0.3 K/mm3 (0.1-1.0); Monocytes % 7.4 % (1.7-9.3); Neutrophils # 2.2 K/mm3 (1.8-7.8); Neutrophils % 51.4 % (37.0-80.0); Nucleated Red Blood Cells # 0 10^3/uL; Nucleated Red Blood Cells % 0 %; Platelet Count 170 K/mm3 (142-424); Red Blood Count 4.97 M/mm3 (4.60-6.20); Red Cell Distribution Width 12.1 % (11.5-17.5); Red Cell Distribution Width-SD 41.4 fL; White Blood Count 4.4 K/mm3 (4.8-10.8)
[2024-11-14 10:26] LABS: Alanine Aminotransferase 13 U/L (12-78); Albumin Level 4.7 g/dl (3.5-5.0); Albumin/Globulin Ratio 1.9 (1.1-1.8); Alkaline Phosphatase 54 U/L (38-126); Anion Gap 11.5 mEq/L (5-15); Aspartate Amino Transferase 24 U/L (17-59); Bilirubin,Total 2.2 mg/dl (0.2-1.3); Blood Urea Nitrogen 14 mg/dl (9-20); Calcium 9.4 mg/dl (8.4-10.2); Carbon Dioxide 27 mmol/L (22.0-30.0); Chloride 101 mmol/L (98-107); Estimated Glomerular Filt Rate 106 ml/min (>60); GFR (African American) 128 ML/MIN (>60); Globulin 2.5 g/dL (1.3-3.2); Glucose 140 mg/dl (74-100); Potassium 3.5 mmoL/L (3.5-5.1); Sodium 136 mmol/L (136-145); Total Protein,Serum 7.2 g/dl (6.3-8.2); Uric Acid 5.6 mg/dl (3.5-8.5)
[2024-11-14 10:34] LABS: Erythrocyte Sedimentation Rate 2 mm/hr (0-15)
[2024-11-14 10:40] LABS: Free T4 (Free Thyroxine) 1.09 ng/dl (0.78-2.19)
[2024-11-14 10:42] LABS: T4 (Thyroxine) 7.5 ug/dl (5.53-11.0)
[2024-11-14 10:56] LABS: Thyroid Stimulating Hormone 1.39 uIU/mL (0.465-4.68)
[2024-11-14 11:06] LABS: Iron 226 ug/dL (49-181)
[2024-11-15 05:35] LABS: RA Latex Turbid. <10.0 IU/mL (<14.0)
[2024-11-18 07:11] LABS: Zinc 87 ug/dL (44-115)
[2024-11-18 11:12] LABS: Antinuclear Antibodies, IFA Negative (.)
== END 2024-11-14 23:59 | disposition home or self-care (01) ==
PROVIDERS: PCP Physician Assistant; Visit Provider Physician Assistant
DX: L60.8 Other nail disorders (principal)
CPT/HCPCS: 36415; 80053; 82728; 83540; 84436; 84439; 84443; 84550; 84630; 85025; 85651; 86038; 86431

== ENCOUNTER 2024-12-30 18:55 | Emergency (ER) | payer BC, SELFPAY ==
[2024-12-30] VITALS (10 sets, daily range): BP systolic 114–133; BP diastolic 69–84; PULSE 65–82; RESP 14; TEMP 36.7; O2SAT 99–100
--- NOTE | 2024-12-30 19:36 | CT_ITS ---
PROCEDURE INFORMATION: Exam: CT Abdomen And Pelvis With Contrast Exam date and time: 12/30/2024 8:27 PM Age: 24 years old Clinical indication: Abdominal pain; Additional info: Right upper abd pain, epig TECHNIQUE: Imaging protocol: Computed tomography of the abdomen and pelvis with contrast. Radiation optimization: All CT scans at this facility use at least one of these dose optimization techniques: automated exposure control; mA and/or kV adjustment per patient size (includes targeted exams where dose is matched to clinical indication); or iterative reconstruction. Contrast material: ISOVUE; Contrast volume: 75 ml; Contrast route: IV; COMPARISON: CT ABDOMEN PELVIS W CON 10/02/2021 12:57 AM FINDINGS: Liver: Hepatomegaly. No mass. Equivocal minimal periportal edema. Gallbladder and biliary ducts: Normal. No calcified stones. No ductal dilation. Pancreas: Normal. No ductal dilation. Spleen: Normal. No splenomegaly. Adrenal glands: Normal. No mass. Kidneys and ureters: Normal. No hydronephrosis. Stomach and bowel: Unremarkable. No obstruction. No mucosal thickening. Appendix: No evidence of appendicitis. Intraperitoneal space: Unremarkable. No free air. No significant fluid collection. Vasculature: Unremarkable. No abdominal aortic aneurysm. Lymph nodes: Unremarkable. No enlarged lymph nodes. Urinary bladder: Mild anterior wall thickening Reproductive: Unremarkable as visualized. Bones/joints: Mild levoconvex curvature of the spine. No acute fracture. Soft tissues: Unremarkable. IMPRESSION: 1. Equivocal minimal periportal edema, findings which may be seen with cholangitis or hepatitis in the acute setting. 2. Mild anterior urinary bladder wall thickening, correlate for cystitis.
--- NOTE | 2024-12-30 19:37 | ED_ITS ---
<Statement entered by Reuben Perales MD - 12/30/24 23:23> I was consulted by the MOLINA, and we discussed the complexity of the problems being addressed. I approved the treatment and management plan for this patient's care in the emergency department, thus performing a substantive portion of the medical decision making. Reuben Perales MD, MISAEL, FACEP Discharge Plan Disposition Patient Disposition: Home, Self-Care Condition: Good Prescriptions Prescriptions: No Action levetiracetam 500 mg tablet 1,000 mg PO BID 30 Days Qty: 60 mesalamine 250 mg capsule, extended release 250 mg PO TID omeprazole 40 mg capsule,delayed release(DR/EC) 40 mg PO DAILY Referrals Follow up/Referrals: Randell Bennett MD [Primary Care Provider, Medical] - See instructions Activity Restrictions/Add. Instructions Additional Instructions/Restrictions: Follow-up with your GI doctor as we discussed. If any worsening pain or problems please return to the ED immediately. Continue all your medications. Discussed with your doctor the elevated bilirubin. Clinical Impressions Clinical Impression: Abdominal pain Instructions Patient Instructions: DI for Acute Abdominal Pain Print Language Print Language: Croatian Discharge ED Provider: Reuben Perales General Adult HPI General Chief complaint: Abdominal Pain Stated complaint: upper abdominal pain on right side Time Seen by Provider: 12/30/24 19:33 History of Present Illness HPI narrative: 24-year-old male presents to the ED today with complaint of right upper abdominal pain/epigastric pain that started hurting off and on yesterday. He says it has been on and off. No nausea, no vomiting, no diarrhea. No fevers or chills. He says when he takes a deep breath it makes it hurt worse. No other symptoms. He has history of seizures and Crohn's. He does take medications for these. Related Data Home Medications ?Medication ?Instructions ?Recorded ?Confirmed levetiracetam 500 mg tablet 1,000 mg PO BID SEIZURES 3 0 days 04/28/18 12/30/24 #60 tabs mesalamine 250 mg capsule,extended 250 mg PO TID CROHN S 08/16/19 12/30/24 release omeprazole 40 mg capsule,delayed 40 mg PO DAILY 12/30/24 release Allergies Allergy/AdvReac Type Severity Reaction Status Date / Time Penicillins (PENICILLINS) Allergy Intermediate S-SWELLS-OR Verified 12/30/24 19:49 AL/THROAT [facility] Disclaimer: The information contained in this section may have been updated after the patient was seen, as this information can be updated by other users. 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 , CCO) Seizures Social History , CCO) Smoking Status: Current every day smoker tobacco type: e-cigarettes alcohol intake: never current occupational status: other Travel in the last 8 weeks?: None household members: family housing: house Have you lived/traveled outside US in past 30 days?: No Contact w/someone who lives/traveled outside US past 30 days?: No Exposure to someone with infectious disease in past 14 days?: No Do you have a fever (greater than 100.4 F or 38 C)?: No Have you tested positive for COVID-19?: No Exposed to someone with COVID-19 in past 14 days?: No Do you have a sore throat?: No Do you have a cough?: No Do you have any weakness?: No Do you have any diarrhea?: No Are you experiencing any unusual bleeding?: No Do you have any muscle aches/pain?: No Do you have any abdominal pain?: No Are you experiencing loss of taste or smell?: No Other 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 Have you received the Flu Vaccine for this season: No Have you received the Pneumonia Vaccine: No ROS Obtained: Yes Systems reviewed as appropriate & no additional complaints except as documented Constitutional Constitutional: Reports as per HPI Physical Exam General General appearance: alert and in no apparent distress Head Head exam: atraumatic and normocephalic Eye Eye exam: Present normal appearance, PERRL and EOMI ENT ENT exam: Present normal oropharynx and mucous membranes moist Neck Neck exam: Present full ROM and trachea midline Respiratory Respiratory exam: Present normal lung sounds bilaterally Cardiovascular Cardiovascular exam: Present regular rate, normal rhythm, normal heart sounds, +S1 and +S2 Abdominal Exam Abdominal exam: Present soft and normal bowel sounds Abdominal tenderness: Present RUQ and epigastrium Extremities Exam Extremities exam: Present normal inspection, full ROM and normal capillary refill Neurological Exam Neurological exam: Present alert, oriented X3 and normal gait Skin Skin exam: Present warm, dry and intact Medical Decision Making Medical Records Screening: Per USPSTF and CDC recommendations, given the prevalence of disease in our region, it is our hospital?s policy to screen for HIV and viral Hepatitis for all patients aged 18 and over and those with ongoing risk factors. Ede Inquiry Pt receiving controlled substance: No Ede was queried for this patient: No Vital Signs: 12/30/24 19:43 12/30/24 19:45 12/30/24 20:00 Temperature 98.1 F Temperature Source Oral Pulse Rate 77 Pulse Rate [Left] 80 Respiratory Rate 14 Blood Pressure 116/77 114/73 Blood Pressure [Right Arm] 122/84 Blood Pressure Mean 82 Blood Pressure Mean [Right Arm] 96 Blood Pressure Source Blood Pressure Source [Right Arm] Automatic Cuff Blood Pressure Position Blood Pressure Position [Right Arm] Sitting 02 Sat by Pulse Oximetry 99 100 Oxygen Delivery Method Room Air 12/30/24 20:15 12/30/24 20:15 12/30/24 20:30 Temperature Temperature Source Pulse Rate 65 Pulse Rate [Left] Respiratory Rate Blood Pressure 116/75 133/81 Blood Pressure [Right Arm] Blood Pressure Mean 84 89 Blood Pressure Mean [Right Arm] Blood Pressure Source Blood Pressure Source [Right Arm] Blood Pressure Position Blood Pressure Position [Right Arm] 02 Sat by Pulse Oximetry 100 Oxygen Delivery Method 12/30/24 20:30 12/30/24 20:45 12/30/24 20:45 Temperature Temperature Source Pulse Rate 76 70 Pulse Rate [Left] Respiratory Rate Blood Pressure 126/79 Blood Pressure [Right Arm] Blood Pressure Mean 89 Blood Pressure Mean [Right Arm] Blood Pressure Source Blood Pressure Source [Right Arm] Blood Pressure Position Blood Pressure Position [Right Arm] 02 Sat by Pulse Oximetry 100 100 Oxygen Delivery Method 12/30/24 21:00 12/30/24 21:00 12/30/24 21:15 Temperature Temperature Source Pulse Rate 72 78 Pulse Rate [Left] Respiratory Rate Blood Pressure 123/69 Blood Pressure [Right Arm] Blood Pressure Mean 89 Blood Pressure Mean [Right Arm] Blood Pressure Source Blood Pressure Source [Right Arm] Blood Pressure Position Blood Pressure Position [Right Arm] 02 Sat by Pulse Oximetry 100 100 Oxygen Delivery Method 12/30/24 21:15 12/30/24 21:30 12/30/24 21:30 Temperature Temperature Source Pulse Rate 82 Pulse Rate [Left] Respiratory Rate Blood Pressure 127/74 119/71 Blood Pressure [Right Arm] Blood Pressure Mean 95 87 Blood Pressure Mean [Right Arm] Blood Pressure Source Blood Pressure Source [Right Arm] Blood Pressure Position Blood Pressure Position [Right Arm] 02 Sat by Pulse Oximetry 99 Oxygen Delivery Method 12/30/24 21:55 Temperature 98.1 F Temperature Source Oral Pulse Rate 82 Pulse Rate [Left] Respiratory Rate 14 Blood Pressure 119/71 Blood Pressure [Right Arm] Blood Pressure Mean Blood Pressure Mean [Right Arm] Blood Pressure Source Automatic Cuff Blood Pressure Source [Right Arm] Blood Pressure Position Sitting Blood Pressure Position [Right Arm] 02 Sat by Pulse Oximetry Oxygen Delivery Method Room Air Lab Data Lab Results 12/30/24 19:40: WBC 5.9, RBC 4.59 L, Hgb 14.4, Hct 42.4, MCV 92.4, MCH 31.4 H, MCHC 34.0, RDW 11.9, Plt Count 165, MPV 11.6 H, Neut % (Auto) 55.4, Lymph % (Auto) 34.0, [place] % (Auto) 7.2, Eos % (Auto) 2.9, Baso % (Auto) 0.3, Neut # (Auto) 3.3, Lymph # (Auto) 2.0, [place] # (Auto) 0.4, Eos # (Auto) 0.2, Baso # (Auto) 0.0, Sodium 138, Potassium 3.4 L, Chloride 99, Carbon Dioxide 24, Anion Gap 18.4 H, BUN 9, Creatinine 0.70, Estimated Creat Clear 149, Estimated GFR 141, Est GFR ( Amer) 171, Glucose 95, Calcium 9.7, Magnesium 1.9, Total Bilirubin 1.4 H, AST 37, ALT 12, Alkaline Phosphatase 56, Troponin I < 0.01, Total Protein 7.9, Albumin 4.9, Globulin 3.0, Albumin/Globulin Ratio 1.6, Lipase 57 12/30/24 19:40 12/30/24 19:40 Orders (Tests/Meds): ED MEDICATIONS Discontinued Medications Generic Name Dose Route Start Last Admin Trade Name Freq PRN Reason Stop Dose Admin Famotidine 20 mg 12/30/24 19:36 12/30/24 19:53 Famotidine 20mg/2ml Vial IV 12/30/24 19:37 20 mg ONCE ONE Administration Sodium Chloride 1,000 mls @ 999 mls/hr 12/30/24 19:36 12/30/24 19:53 Sod Chlor 0.9% 1000ml Bag IV 12/30/24 20:36 999 mls/hr .Q1H1M ONE Administration Iopamidol 75 ml 12/30/24 20:27 12/30/24 20:27 Iopamidol-370 (76%);100ml Bottle IV 12/30/24 20:28 75 ml ONCE ONE Administration Ketorolac Tromethamine 30 mg 12/30/24 21:47 12/30/24 21:48 Ketorolac 30mg/Ml Vial IV 12/30/24 21:48 30 mg ONCE ONE Administration Sodium Chloride 8 ml 12/30/24 19:36 12/30/24 19:53 Sodium Chloride 0.9% 10ml Vial IV 01/29/25 19:35 8 ml NEEDED PRN Administration dilute pepcid Sodium Chloride 10 ml 12/30/24 20:27 12/30/24 20:27 Sodium Chloride 0.9% 10ml Syr (Rad Only) IV 12/30/24 20:28 10 ml ONCE ONE Administration ORDERS Category Date Time Status CT abdomen pelvis w con Stat Cat Scan 12/30/24 19:36 Completed CBC [Complete Blood Count Auto Diff] Stat Lab 12/30/24 19:40 Completed Comprehensive Metabolic Panel Stat Lab 12/30/24 19:40 Completed Lipase Stat Lab 12/30/24 19:40 Completed Magnesium Stat Lab 12/30/24 19:40 Completed Trop I [Troponin I] Stat Lab 12/30/24 19:40 Completed Medical Decision Narrative: patient is a 24-year-old male presenting to the emergency department for evaluation of sharp right-sided abdominal pain and epigastric pain that has been going on since yesterday. This is been happening on and off. Negative for nausea or vomiting. Patient is hemodynamically stable and nontoxic-appearing upon arrival, afebrile. Differential diagnosis includes ulcer, Crohn's, appendicitis, gallbladder issues, among others. Workup will be conducted with hematologic labs, specific imaging. Initial inventions include crystalloid bolus, analgesics. Initial workup reviewed by me hematologic labs are remarkable for elevated bilirubin, it was lower than it was the last time we checked it. He does have Crohn's disease which I discussed with him. He had some periportal swelling on his CT scan which I discussed with Dr. Perales this will just need to be followed up with GI. Patient already has a GI appointment on the . He sees Alfredito Hyman. He has no clinical evidence of cholangitis that is on the scan. This he has some pain in his right upper abdomen but says that he has no vomiting, no diarrhea no fevers no chills no other symptoms. He will follow-up with GI. Patient is stable for discharge home. Critical Care Critical Care Time Critical Care Time: No
--- OUTSIDE RECORDS SUMMARY | 2024-12-30 19:38 | XMS_ITS | Clinical Summary ---
Author Organization [facility] Address [address] [place] [address] Care Team Providers Care Core Cleaner Name Role Phone Carson Bennett MD Primary Care Provider [phone] Elise Gonzalez MD Unavailable Allergies Active Allergy Reactions Criticality Noted Date Comments Acyclovir Rash Medium 05/31/2021 Penicillins Hives,Rash,Swelling High 02/24/2013 Medications mesalamine (Asacol) 800 MG EC tablet Take 2 tablets (1,600 mg) by mouth 2 (two) times a day. Do not crush, chew, or split. 120 tablet 11 4 Active levETIRAcetam (Keppra) 1000 MG tabletIndication s:Localization-r elated (focal) (partial) symptomatic epilepsy and epileptic syndromes with complex partial seizures, not intractable, without status epilepticus Take 1 tablet (1,000 mg) by mouth 2 (two) times a day. 60 tablet 11 5 Active omeprazole (PriLOSEC) [address] capsule Take 1 capsule (40 mg) by mouth 1 (one) time each day. Do not crush or chew. 30 capsule 11 4 12/25/19 25 Active Problems Problem Noted Date Diagnosed Date Localization-related (focal) (partial) symptomatic epilepsy and epileptic syndromes with complex partial seizures, not intractable, without status epilepticus 03/06/2022 Esophagitis 02/25/2019 Gastritis 02/25/2019 Ileitis 02/25/2019 Malnutrition 02/25/2019 Proctitis 02/25/2019 Crohn's disease 02/14/2019 Family history of von Willebrand disease 019 Overview (03/18/2021): Family history of diseases of the blood and blood-forming organs and certain disorders involving the immune mechanism Nausea 01/16/2019 Acid reflux 01/14/2019 Mouth sores 01/14/2019 Weight loss 01/14/2019 Seizures 10/16/2013 Encounters Date Type Department Care Team Description 12/03/2024 Telephone [place] [facility] Clinic [address], [address] [place] [address] Elise Gonzalez MD from Last 3 Months Immunizations Immunization Administration Dates Next Due DTaP, Unspecified 01/19/2006, 3,2002, 002,2002 Hep A, ped/adol, 2 dose 07/04/2018,10/17/2017 Hep B, Adolescent or Pediatric 01/15/2003,2001 Hib (PRP-OMP) 2002 Hib / Hep B 2002 IPV 01/19/2006, 3,2002, 002 Influenza, injectable, quadrivalent 07/18/2019 MMR 01/19/2006,04/15/2003 Meningococcal MCV4, Unspecified 12/05/2012 Meningococcal MCV4P 07/04/2018 Pneumococcal Conjugate PCV 13 07/18/2019 Pneumococcal Conjugate PCV 7 04/15/2003, 2002,2002, 002 Tdap 10/15/2023,12/05/2012 Varicella 12/05/2012,01/15/2003 Family History 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 Relation Name Comments Allergy (severe) Mother Delonte Migraines Mother Deolnte Von Willebrand disease Mother Delonte Famil y history of von Willebrand disease Asthma Sister Relation Name Status Comments Mother Delonte Sister Social History Tobacco Use Types Packs/Day Years Used Date Smoking Tobacco: Never Passive Smoke Exposure: Past Smokeless Tobacco: Former Tobacco Cessation:Counseling Given: Not Answered Comments:Vapes Alcohol Use Standard Drinks/Week Comments Not Currently 0 (1 standard drink = 0.6 oz pur e alcohol) social PHQ-2 Answer Date Recorded Patient Health Questionnaire-2 Score 0 12/25/2023 PHQ-2A Answer Date Recorded Patient Health Questionnaire-2 Score 0 04/11/2023 Sex and Gender Information Value Date Recorded Sex Assigned at Not on file Legal Sex Male 8:04 PM EDT Gender Identity Not on file Sexual Orientation Not on file Last Filed Vital Signs Vital Sign Reading Time Taken Comments Blood Pressure 112/82 01/28/2024 11:19 AM EDT Pulse 97 01/28/2024 11:19 AM EDT Temperature 36.6 C (97.9 F) 12/25/2023 8:31 AM EDT Respiratory Rate 18 01/28/2024 11:19 AM EDT Oxygen Saturation 99% 01/28/2024 11:19 AM EDT Inhaled Oxygen Concentration - - Weight 62.7 kg (138 lb 3.2 oz) 01/28/2024 11:19 AM EDT Height 177.8 cm (5' 10 ) 01/28/2024 11:19 AM EDT Body Mass Index 19.83 01/28/2024 11:19 AM EDT Plan of Treatment Upcoming Encounters Date Type Department Care Team (Late st Contact Info) Description 01/06/2025 9:00 AM EDT Office Visit [facility] Medicine Specialties [address] [place] [phone] Alfredito Hyman MD [address] [place] [phone] 04/06/2025 9:30 AM EDT Office Visit [facility] Orthopaedic Surgery & Sports Medicine [address] [place] [address] Elise Gonzalez MD [address] [place] [address] Health Maintenance Due Date Last Done Comments [facility]-HIV Screening 2002 [facility]-/Child/Adol SDOH Screenings 2002 HPV Vaccines (1 - Male 3-dose series) 2017 [facility]- SDOH Screenings 01/14/2020 [facility]-Adult SDOH Screenings 01/14/2020 [facility]-RHBFB-88 Vaccine ( season) 2024 [facility]-Depression Screening 12/24/2024 12/25/2023 [facility]-Influenza Vaccine (#1) 2025 07/18/2019 [facility]-DTaP,Tdap,and Td Vaccines (8 - Td or Tdap) 10/14/2033 10/15/2023, 12/05/2012, 01/19/2006, Additional history exists [facility]-Zoster Vaccines (1 of 2) 01/14/2052 12/05/2012, 01/15/2003 [facility]-HIB Vaccines Aged Out 2002, 2002 N o longer eligible based on patient's age to complete this topic [facility]-Hepatitis B Vaccines Completed 003, 2002, 2002 [facility]-IPV Vaccines Completed 01/19/2006, , 2002, Additional history exists [facility]-Varicella Vaccines Completed 12/05/2012, 2002 [facility]-Hepatitis A Vaccines Completed 07/04/2018, 07/2017 [facility]-Hepatitis C Screening Completed 02/14/2019 [facility]-Pneumococcal Vaccine: Pediatrics (0 to 5 Years) and At-Risk Patients (6 to 49 Years) Aged Out 07/18/2019, 04/15/2003, 2002, Additional history exists No longer eligible based on patient's age to complete this topic [facility]-Rotavirus Vaccines Aged Out No lo nger eligible based on patient's age to complete this topic Procedures Procedure Name Priority Date/Time Associated Diagnosis Comments HEPATITIS C ANTIBODY W/REFLEX TO HCV QUANT PCR STAT 02/14/2019 9:07 AM EDT from Last 3 Months or Most Recently Relevant to Health Maintenance Results * Hepatitis C Antibody (02/14/2019 9:07 AM EDT) Hepatitis C Antibody NEGATIVE Reference Range: Negative SUNQUEST 02/14/2019 9:07 AM EDT 02/14/2019 9:30 AM EDT us Qian Mendieta MD LAB BLOOD ORDERABLES Final Re sult SUNQUEST from Last 3 Months or Most Recently Relevant to Health Maintenance Insurance ANTH Care Teams Core Cleaner Relationship Specialty Start Date End Date Carson Bennett MD [address] [place] [address] PCP - General 10/29/20 Elise Gonzalez MD [address] [place] [address] Consulting Physician Neurology 03/18/21
--- OUTSIDE RECORDS SUMMARY | 2024-12-30 19:38 | XMS_ITS | Encounter Summary ---
Author Organization [facility] Address [address] [place] [address] Care Team Providers Care Local Truck Driver Name Role Phone Carson Bennett MD Primary Care Provider [phone] Elise Gonzalez MD Unavailable Encounter Details Date Type Department Care Team (Late Contact Info) Description 12/03/2024 Telephone [facility] [address] [place] [address] Elise Gonzalez MD [address] [place] [address] Social History Tobacco Use Types Packs/Day Years Used Date Smoking Tobacco: Never Passive Smoke Exposure: Past Smokeless Tobacco: Former Comments:Vapes Alcohol Use Standard Drinks/Week Comments Not [...] on file Sexual Orientation Not on file documented as of this encounter Plan of Treatment Upcoming Encounters Date Type Department Care Team (Late st Contact Info) Description 01/06/2025 9:00 AM EDT Office Visit [facility] Medicine Specialties [address] [place] [address] Alfredito Hyman MD [address] [place] [address] 04/06/2025 9:30 AM EDT Office Visit [facility] Orthopaedic Surgery & Sports Medicine [address] [place] [address] Elise Gonzalez MD [address] [place] [address] documented as of this encounter Visit Diagnoses Not on filedocumented in this encounter Additional Health Concerns Assessment Noted Time A fall risk assessment has been complete d for the patient 01/28/2024 11:21 AM EDT A Body Mass Index follow-up plan has been documented for the patient 01/29/2024 12:27 AM EDT documented as of this encounter Care Teams Local Truck Driver Relationship Specialty Start Date End Date Carson Bennett MD [address] [facility] [address] [place] [address] PCP - General 10/29/20 Elise Gonzalez MD [address] [place] [phone] Consulting Physician Neurology 03/18/21 documented as of this encounter
[2024-12-30 19:47] LABS: Hematocrit 42.4 % (42.0-52.0); Hemoglobin 14.4 g/dL (14.1-18.0); Immature Granulocytes % 0.2 %; Mean Corpuscular HGB Conc 34.0 g/dL (31.8-35.4); Mean Corpuscular Hemoglobin 31.4 pg (27.0-31.2); Mean Corpuscular Volume 92.4 fl (80-94); Nucleated Red Blood Cells % 0 %; Platelet Count 165 K/mm3 (142-424); Red Blood Count 4.59 M/mm3 (4.60-6.20); Red Cell Distribution Width-SD 40.1 fL; White Blood Count 5.9 K/mm3 (4.8-10.8)
--- NOTE | 2024-12-30 19:50 | ECG_ITS ---
APPROVED REPORT Exam: Resting ECG HR:80 bpm ECG Measurements Heart Rate 80 AXES MA 108 P 73 QRSd 91 QRS 82 QT 368 T 74 QTc 404 Conclusion SINUS RHYTHM WITH SHORT MA INTERVAL POSSIBLE RIGHT VENTRICULAR CONDUCTION DELAY [RSR (QR) IN V1/V2] MODERATE ST DEPRESSION [0.05+ mV ST DEPRESSION] ABNORMAL ECG UNCONFIRMED REPORT Electronically signed by : Bolivar Perales, 12/30/2024 23:28:43
[2024-12-30] MEDS: 0.9 % SODIUM CHLORIDE 1000ML 1,000 ML 999 ML IV (19:53)
[2024-12-30] MEDS: FAMOTIDINE 20MG/2ML VIAL 20 MG IV (19:53)
[2024-12-30] MEDS: SODIUM CHLORIDE 0.9% 10ML VIAL 8 ML IV (19:53)
[2024-12-30 20:05] LABS: Alanine Aminotransferase 12 U/L (12-78); Albumin Level 4.9 g/dl (3.5-5.0); Albumin/Globulin Ratio 1.6 (1.1-1.8); Alkaline Phosphatase 56 U/L (38-126); Anion Gap 18.4 mEq/L (5-15); Aspartate Amino Transferase 37 U/L (17-59); Bilirubin,Total 1.4 mg/dl (0.2-1.3); Blood Urea Nitrogen 9 mg/dl (9-20); Calcium 9.7 mg/dl (8.4-10.2); Carbon Dioxide 24 mmol/L (22.0-30.0); Chloride 99 mmol/L (98-107); Creatinine Clearance Estimated 149 mL/min (50-200); Creatinine,Serum 0.70 mg/dl (0.66-1.25); Estimated Glomerular Filt Rate 141 ml/min (>60); GFR (African American) 171 ML/MIN (>60); Globulin 3.0 g/dL (1.3-3.2); Glucose 95 mg/dl (74-100); Lipase 57 U/L (23-300); Magnesium 1.9 mg/dl (1.6-2.3); Potassium 3.4 mmoL/L (3.5-5.1); Sodium 138 mmol/L (136-145); Total Protein,Serum 7.9 g/dl (6.3-8.2)
[2024-12-30 20:20] LABS: Troponin I < 0.01 ng/ml (0.00-0.034)
[2024-12-30] MEDS: SODIUM CHLORIDE 0.9% 10ML SYR (RAD ONLY) 10 ML IV (20:27)
[2024-12-30] MEDS: IOPAMIDOL-370 (76%);100ML BOTTLE 75 ML IV (20:27)
[2024-12-30] MEDS: KETOROLAC 30MG/ML VIAL 30 MG IV (21:48)
== END 2024-12-30 21:58 | disposition home or self-care (01) ==
PROVIDERS: Nurse Practitioner; Emergency Provider Student in an Organized Health Care Education/Training Program; PCP Family Medicine
DX: R10.11 Right upper quadrant pain (principal); F17.210 Nicotine dependence, cigarettes, uncomplicated
CPT/HCPCS: 74177; 80053; 83690; 83735; 84484; 85025; 93005; 96361; 96374; 96375; 99284; J1885; J7030; Q9967

== ENCOUNTER 2025-05-28 08:47 | Outpatient (CLI) | payer BC, SELFPAY ==
--- NOTE | 2025-05-28 08:51 | CT_ITS ---
FINAL REPORT TECHNIQUE: After the administration of intravenous contrast, axial images were obtained through the abdomen and pelvis by computed tomography. The study was performed with techniques to keep radiation dose as low as reasonably achievable, (ALARA). Individual dose reduction techniques using automated exposure control or adjustment of mA and/or kV according to the patient's size were employed. CLINICAL HISTORY: CROHNS DISEASE OF SMALL INTESTINE COMPARISON: 12/30/2024 FINDINGS: Abdomen: The lung bases are clear. The liver parenchyma is homogeneous. The previously questioned periportal edema is no longer visualized. The gallbladder is present. The spleen, pancreas, adrenals and kidneys appear unremarkable. The aorta is normal in caliber. There is no free fluid or adenopathy. Pelvis: There is a large amount of fluid throughout the colon. There is a moderate amount of stool in the rectum. No definite mucosal thickening or localized inflammation. The appendix is unremarkable. The urinary bladder is decompressed. There is no free fluid or adenopathy. IMPRESSION: Fluid in redundant colon. Moderate stool in the rectum. Reviewed, Interpreted and Dictated by Ramsey Rudolph MD Transcribed by Camille Rhoades Authenticated and [facility]
[2025-05-28] MEDS: IOPAMIDOL-370 (76%);100ML BOTTLE 100 ML IV (10:26)
[2025-05-28] MEDS: BREEZA FLAVORED BEVERAGE 500ML BOTTLE (RAD USE ONLY) 1500 ML PO (10:26)
[2025-05-28] MEDS: 0.9 % SODIUM CHLORIDE 50 ML VIAL IV (10:26)
[2025-05-28] MEDS: SODIUM CHLORIDE 0.9% 10ML SYR (RAD ONLY) 10 ML IV (10:26)
== END 2025-05-28 23:59 | disposition home or self-care (01) ==
LOC: RAD 08:48
PROVIDERS: PCP Family Medicine; Visit Provider Internal Medicine Gastroenterology
DX: Q43.8 Other specified congenital malformations of intestine (principal); K50.00 Crohn's disease of small intestine without complications; R93.3 Abnormal findings on diagnostic imaging of other parts of digestive tract
CPT/HCPCS: 74177; Q9967